=== PATIENT | male | born 1970 | race Caucasian/White ===

== ENCOUNTER 2017-08-24 10:42 | Emergency (ER) | payer BC ==
[~2017-08-24] VITALS: Ht 165.1 cm; Wt 91.4 kg
[2017-08-24 11:27] LABS: CHLORIDE 104 mEq/L (99-109); POTASSIUM 4.1 mEq/L (3.7-5.4); SODIUM 138 mEq/L (136-147)
[2017-08-24 11:29] LABS: GLUCOSE 118 mg/dL (70-99)
[2017-08-24 11:33] LABS: CREATININE 0.8 mg/dL (0.6-1.3); GFR ESTIMATE (CALCULATED) > 59 mL/min/ (58.99-99999); UREA NITROGEN (BUN) 11 mg/dL (9-23)
[2017-08-24 11:39] LABS: TROP-I INTERPRETATION NEGATIVE; TROPONIN-I < 0.01 ng/mL (0.0-0.30)
[2017-08-24 11:50] LABS: BASOPHIL (%) 0.4 % (0-1); EOSINOPHIL (%) 2.6 % (0-5); EOSINOPHIL COUNT 0.3 K/uL (0-0.3); HEMATOCRIT 50.7 % (38.0-50.0); IMMATURE GRANULOCYTE (%) 0.5 % (0.0-0.7); LYMPHOCYTE COUNT 1.7 K/uL (1.0-2.8); MCH 29.8 PG (29.0-34.0); MCHC 33.5 G/DL (30.0-36.0); MCV 88.8 FL (86-99); MONOCYTE (%) 10.4 % (3-12); MONOCYTE COUNT 1.1 K/uL (0-0.8); NEUTROPHIL (%) 69.1 % (45-76); PLATELET COUNT 205 K/uL (156-360); RBC DIS.WIDTH-CV 12.7 % (11.8-14.6); RBC DIS.WIDTH-SD 41.5 % (39-53); RED BLOOD COUNT 5.71 M/uL (4.00-5.50); WHITE BLOOD COUNT 10.2 K/uL (4.1-10.2)
[2017-08-24 11:57] LABS: INTER. NORMALIZED RATIO 1.2
[2017-08-24 11:59] LABS: PTT 32.9 SEC (25-37)
[2017-08-24 13:58] LABS: TROP-I INTERPRETATION NEGATIVE; TROPONIN-I < 0.01 ng/mL (0.0-0.30)
[2017-08-24] MEDS ORDERED: PERCOCET 5/31 TABLET PO (14:18)
[2017-08-24 14:27] VITALS: BP 144/81
== END 2017-08-24 14:40 | disposition home or self-care (01) ==
LOC: EME 10:42
PROVIDERS: Emergency Medicine
DX: R07.89 Other chest pain (principal); I10 Essential (primary) hypertension
CPT/HCPCS: 71045; 71275; 80048; 84484; 85025; 85610; 85730; 93005; 99281; 99285; J1885; J7030

== ENCOUNTER 2017-10-12 13:12 | Emergency (ER) | payer BC ==
[~2017-10-12] VITALS: Ht 165.1 cm; Wt 87.3 kg
[~2017-10-12 13:12] MED LIST: PERCOCET 5/31 TABLET PO
[2017-10-12 13:58] LABS: HEMATOCRIT 50.3 % (38.0-50.0); HEMOGLOBIN 17.2 G/DL (12.5-16.6); MCH 30.4 PG (29.0-34.0); MCHC 34.2 G/DL (30.0-36.0); MCV 88.9 FL (86-99); PLATELET COUNT 201 K/uL (156-360); RBC DIS.WIDTH-CV 13.9 % (11.8-14.6); RBC DIS.WIDTH-SD 44.9 % (39-53); RED BLOOD COUNT 5.66 M/uL (4.00-5.50); WHITE BLOOD COUNT 10.8 K/uL (4.1-10.2)
[2017-10-12 14:07] LABS: ALBUMIN 4.3 g/dL (3.2-4.8); CHLORIDE 103 mEq/L (99-109); POTASSIUM 3.9 mEq/L (3.7-5.4); SODIUM 139 mEq/L (136-147)
[2017-10-12 14:09] LABS: GLUCOSE 110 mg/dL (70-99)
[2017-10-12 14:10] LABS: TOTAL PROTEIN 7.3 g/dL (6.4-8.3)
[2017-10-12 14:13] LABS: ALKALINE PHOSPHATASE 108 IU/L (3-129); GFR ESTIMATE (CALCULATED) > 59 mL/min/ (58.99-99999)
[2017-10-12 14:14] LABS: UREA NITROGEN (BUN) 15 mg/dL (9-23)
[2017-10-12 14:15] LABS: AST (GOT) 20 IU/L (2-34)
[2017-10-12 14:16] LABS: ALT (GPT) 22 IU/L (3-49); LIPASE 10 U/L (1.0-51.0)
[2017-10-12 14:27] LABS: APPEARANCE CLEAR ((CLEAR)); BILIRUBIN NEGATIVE; BLOOD MODERATE; COLOR YELLOW ((YELLOW)); GLUCOSE (STRIP) NEGATIVE; KETONES 20; LEUKOCYTES NEGATIVE; NITRITE NEGATIVE; PROTEIN (STRIP) 30; SPECIFIC GRAVITY 1.029 (1.000-1.030); UROBILINOGEN 0.2 MG/DL (0.2-1.0)
[2017-10-12 14:31] LABS: BACTERIA NONE SEEN /HPF; EPITHELIAL CELLS RARE /HPF; MUCUS 1+ /LPF; RED BLOOD CELLS 20-30 /HPF (0-5); WHITE BLOOD CELLS 0-5 /HPF (0-5)
[2017-10-12 15:58] VITALS: BP 118/70
== END 2017-10-12 15:59 | disposition home or self-care (01) ==
LOC: EME 13:12
PROVIDERS: Physician Assistant
DX: B34.9 Viral infection, unspecified (principal); R94.31 Abnormal electrocardiogram [ECG] [EKG]; I10 Essential (primary) hypertension
CPT/HCPCS: 80053; 81003; 83690; 85027; 93005; 99281; 99284; J1885; J2405; J7030